=== PATIENT | female | born 1925 | race Caucasian/White ===

== ENCOUNTER 2016-07-08 20:58 | Emergency (ER) | payer MEDICARE, BC ==
[2016-07-08 21:21] VITALS: TEMP 99
[2016-07-08 22:33] VITALS: BP 141/63; PULSE 88; RESP 16
--- NOTE | 2016-07-08 22:34 | ED ---
General Adult HPI - General Chief complaint: Abdominal Pain Stated complaint: Constipation Time Seen by Provider: 07/08/16 22:22 Source: patient, family, RN notes reviewed Mode of arrival: ambulatory Limitations: no limitations - History of Present Illness Initial comments: Patient is a pleasant 89-year-old female presenting to the emergency department with complaints of constipation. Patient had difficulty using the bathroom today. In route to the emergency department patient did have a bowel movement just prior to arrival. Patient still decided to be seen secondary to living far away. Patient is symptom-free at this time and has no complaints. No abdominal pain. No fevers. Patient does not have a bowel movement every single day and sometimes does get constipated. - Related Data Home Medications Medication Instructions Recorded Confirmed Aspirin EC [Ecotrin Low Dose] 162 mg PO HS 04/19/15 04/19/15 Cetirizine HCl [Zyrtec] 10 mg PO DAILY PRN 04/19/15 04/19/15 Eye Lubricant Combination No.1 1 applic BOTH EYES QID PRN 04/19/15 04/19/15 [Freshkote] Levothyroxine Sodium [Synthroid] 100 mcg PO DAILY 04/19/15 04/19/15 Meloxicam [Mobic] 15 mg PO DAILY 04/19/15 04/19/15 Previous Rx's Medication Instructions Recorded ALPRAZolam [Xanax] 0.25 mg PO BID #0 04/21/15 Carbamide Peroxide [Debrox Otic] 5 drops BOTH EARS BID #1 ml 04/21/15 Levofloxacin [Levaquin] 250 mg PO DAILY@1800 #6 tab 04/21/15 Meclizine [Antivert] 25 mg PO BID #60 tab 04/21/15 Allergies Allergy/AdvReac Type Severity Reaction Status Date / Time Penicillins Allergy Unknown Verified 07/08/16 21:20 Childhood Review of Systems ROS Statement: Those systems with pertinent positive or pertinent negative responses have been documented in the HPI. ROS Other: All systems not noted in ROS Statement are negative. Constitutional: Denies: fever, chills Eyes: Denies: eye pain ENT: Denies: ear pain Respiratory: Denies: cough Cardiovascular: Denies: chest pain Endocrine: Denies: fatigue Gastrointestinal: Reports: constipation. Denies: abdominal pain, nausea, vomiting, diarrhea, melena Genitourinary: Denies: dysuria Musculoskeletal: Denies: back pain Skin: Denies: rash Neurological: Denies: weakness Past Medical History Past Medical History: Asthma, Coronary Artery Disease (CAD), GERD/Reflux, Osteoarthritis (OA), Thyroid Disorder Additional Past Medical History / Comment(s): 04/19/15 ADMITTED TO [facility] FOR C/O CHEST PAIN,VIVIEN,DIZZINESS. CLINICAL IMPRESSION: ATYPICAL CHEST PAIN,FEVER, PNEUMONITIS. OTHER PAAST MEDICAL HX INCLUDES: occluded carotids, low cholesterol, low blood pressure, low sodium, diverticulitis, TINNITUS,ROSECEA, ANEMIA,GRAVES DISEASE(PER OLD HX) RT CAROTID ARTERY BLOCKAGE. History of Any Multi-Drug Resistant Organisms: None Reported Past Surgical History: Bowel Resection, Cholecystectomy, Hysterectomy, Tonsillectomy Additional Past Surgical History / Comment(s): tooth pulled 1 week ago, thyroidectomy. Past Anesthesia/Blood Transfusion Reactions: No Reported Reaction Past Psychological History: Anxiety, Depression Smoking Status: Former smoker Past Alcohol Use History: None Reported Additional Past Alcohol Use History / Comment(s): QUIT SMOKING 1960 Past Drug Use History: None Reported - Past Family History Mother Family Medical History: Diabetes Mellitus Father Additional Family Medical History / Comment(s): WAS AN ALCOHOLIC AGE 47 General Exam Limitations: no limitations General appearance: alert, in no apparent distress Head exam: Present: atraumatic Eye exam: Present: normal appearance, PERRL ENT exam: Present: normal oropharynx Neck exam: Present: normal inspection Respiratory exam: Present: normal lung sounds bilaterally Cardiovascular Exam: Present: regular rate, normal rhythm Expanded Peripheral pulses: 2+: Dorsalis Pedis (R), Dorsalis Pedis (L) GI/Abdominal exam: Present: soft, normal bowel sounds. Absent: distended, tenderness, guarding, rebound, rigid, pulsatile mass Extremities exam: Present: normal inspection Neurological exam: Present: alert Psychiatric exam: Present: normal affect, normal mood Skin exam: Absent: rash Course Vital Signs 07/08/16 21:15 Temperature 99.0 F Pulse Rate 105 H Respiratory 20 Rate Blood Pressure 156/102 O2 Sat by Pulse 96 Oximetry Medical Decision Making - Medical Decision Making Patient and family are comfortable with resolution of symptoms and not needing further evaluation. They're comfortable with discharge. There happy with improvement of blood pressure. Disposition Clinical Impression: Constipation Disposition: HOME SELF-CARE Condition: Stable Instructions: Constipation (ED), High Fiber Diet (ED) Additional Instructions: Please follow-up with your primary care physician this week. Return for abdominal pain, fevers, worsening or change in symptoms or other concerns. Referrals: Arias Almendarez MD [Primary Care Provider] - 1-2 days
== END 2016-07-08 22:57 | disposition home or self-care (01) ==
LOC: EC 20:58
DX: K59.00 Constipation, unspecified (principal); I25.10 Atherosclerotic heart disease of native coronary artery without angina pectoris; M19.90 Unspecified osteoarthritis, unspecified site; E07.9 Disorder of thyroid, unspecified; Z87.891 Personal history of nicotine dependence; Z79.82 Long term (current) use of aspirin; Z79.899 Other long term (current) drug therapy; Z79.1 Long term (current) use of non-steroidal anti-inflammatories (NSAID); Z88.0 Allergy status to penicillin; Z90.49 Acquired absence of other specified parts of digestive tract; Z90.710 Acquired absence of both cervix and uterus
CPT/HCPCS: 99283

== ENCOUNTER → 2016-08-01 | Outpatient (CLI) | payer MEDICARE, BC ==
--- NOTE | 2016-08-01 12:41 | FL ---
EXAMINATION: Cervical and Thoracic Esophagram DATE OF EXAM: 08/01/2016 10:43 AM CLINICAL INDICATION: 89-year-old female with dysphagia for several months, patient reports sensation of food sitting in the upper and lower chest and even water not helping to clear this sensation. COMPARISON: None Total Fluoroscopy Time: 3.2 minutes. FINDINGS: There is a single episode of deep laryngeal penetration without mitchell aspiration. The patient's cough reflex is intact. There is mild hypertrophy of the cricopharyngeus without obstruction. The thoracic portion has a normal course and caliber. However, there is moderate to severe tertiary p eristalsis within the mid to distal thoracic esophagus. This results in prolonged pooling of contrast in the esophagus with absent secondary stripping waves. No fixed narrowing or discrete mucosal lesio n is seen though exam is limited as the patient could not tolerate the effervescent crystals for adeq uate air contrast. No discrete filling defect is seen. No hiatal hernia is present. No gastroesophageal reflux could be elicited. IMPRESSION: 1. 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 2. Assessment of the mucosa is limited due to single contrast technique as the patient could not tole rate the effervescent crystals. No obvious filling defect is seen. 3. An incidental single episode of deep laryngeal penetration without mitchell aspiration. The patient's cough reflex is intact.
== END | disposition home or self-care (01) ==
LOC: RADFLWHC 09:31
PROVIDERS: ATTEND Family Medicine
DX: R13.19 Other dysphagia (principal)
CPT/HCPCS: 74220

== ENCOUNTER 2017-02-24 23:41 | Observation (INO) | payer MEDICARE, BC ==
--- NOTE | 2017-02-24 23:57 | ED ---
Chest Pain HPI - General Chief Complaint: Chest Pain Stated Complaint: Chest Pressure/Dizzy Time Seen by Provider: 02/24/17 23:56 Source: patient Mode of arrival: wheelchair Limitations: no limitations - History of Present Illness MD Complaint: chest pain Onset/Timin -: days(s) Onset: during rest Pain Location: substernal Pain Radiation: none Severity: moderate Quality: heaviness Consistency: constant Improves With: nothing Worsens With: nothing Anginal Symptoms: nausea Treatments Prior to Arrival: other (Patient tried taking meclizine without improvement) - Related Data Home Medications Medication Instructions Recorded Confirmed Aspirin EC [Ecotrin Low Dose] 81 mg PO HS 04/19/15 07/08/16 Cetirizine HCl [Zyrtec] 10 mg PO DAILY PRN 04/19/15 07/08/16 Eye Lubricant Combination No.1 1 applic BOTH EYES QID PRN 04/19/15 07/08/16 [Freshkote] Levothyroxine Sodium [Synthroid] 100 mcg PO DAILY 04/19/15 07/08/16 Meloxicam [Mobic] 15 mg PO DAILY 04/19/15 07/08/16 ALPRAZolam [Xanax] 0.25 mg PO BID PRN 07/08/16 07/08/16 Previous Rx's Medication Instructions Recorded Meclizine [Antivert] 25 mg PO BID #60 tab 04/21/15 Allergies Allergy/AdvReac Type Severity Reaction Status Date / Time Penicillins Allergy Unknown Verified 02/24/17 23:46 Childhood Review of Systems ROS Statement: Those systems with pertinent positive or pertinent negative responses have been documented in the HPI. ROS Other: All systems not noted in ROS Statement are negative. Constitutional: Denies: fever, chills Respiratory: Denies: cough, dyspnea Cardiovascular: Reports: chest pain. Denies: palpitations, orthopnea, edema, syncope Gastrointestinal: Reports: nausea. Denies: abdominal pain, vomiting, melena, hematochezia Genitourinary: Denies: dysuria, hematuria Musculoskeletal: Denies: back pain Skin: Denies: rash Neurological: Denies: headache, weakness, numbness EKG Findings - EKG Results: EKG: interpreted by ERMD, sinus rhythm, normal QRS, normal ST/T - Blocks, [place], Hypertrophy, ST Abn: QRS axis and voltage: left axis deviation (-30 to -90) Past Medical History Past Medical History: Asthma, Coronary Artery Disease (CAD), GERD/Reflux, Osteoarthritis (OA), Thyroid Disorder Additional Past Medical History / Comment(s): 04/19/15 ADMITTED TO [facility] FOR C/O CHEST PAIN,VIIVEN,DIZZINESS. CLINICAL IMPRESSION: ATYPICAL CHEST PAIN,FEVER, PNEUMONITIS. OTHER PAAST MEDICAL HX INCLUDES: occluded carotids, low cholesterol, low blood pressure, low sodium, diverticulitis, TINNITUS,ROSECEA, ANEMIA,GRAVES DISEASE(PER OLD HX) RT CAROTID ARTERY BLOCKAGE. right wrisxt fx. History of Any Multi-Drug Resistant Organisms: None Reported Past Surgical History: Bowel Resection, Cholecystectomy, Hysterectomy, Tonsillectomy Additional Past Surgical History / Comment(s): tooth pulled 1 week ago, thyroidectomy. right hip replacement. Past Anesthesia/Blood Transfusion Reactions: No Reported Reaction Past Psychological History: Anxiety, Depression Smoking Status: Former smoker Past Alcohol Use History: None Reported Past Drug Use History: None Reported - Past Family History Mother Family Medical History: Diabetes Mellitus Father Additional Family Medical History / Comment(s): WAS AN ALCOHOLIC AGE 47 General Exam Limitations: no limitations General appearance: alert, in no apparent distress, cachectic Head exam: Present: atraumatic, normocephalic Eye exam: Present: normal appearance. Absent: scleral icterus, conjunctival injection ENT exam: Present: normal oropharynx Respiratory exam: Present: normal lung sounds bilaterally, rales (Bibasilar rales that clear with deep breath). Absent: respiratory distress, wheezes, rhonchi, stridor, chest wall tenderness Cardiovascular Exam: Present: regular rate, normal rhythm, normal heart sounds. Absent: systolic murmur, diastolic murmur, rubs, gallop GI/Abdominal exam: Present: soft. Absent: distended, tenderness, guarding, rebound, rigid Extremities exam: Present: normal inspection, normal capillary refill. Absent: pedal edema, calf tenderness Back exam: Absent: CVA tenderness (R), CVA tenderness (L) Neurological exam: Present: alert Skin exam: Present: warm, dry, intact, normal color. Absent: rash Course Vital Signs 02/24/17 02/25/17 02/25/17 23:42 00:59 01:41 Temperature 98 F Pulse Rate 89 83 80 Respiratory 16 16 16 Rate Blood Pressure 144/63 157/70 O2 Sat by Pulse 99 97 Oximetry 02/25/17 02:57 Temperature Pulse Rate 75 Respiratory 16 Rate Blood Pressure 134/65 O2 Sat by Pulse 97 Oximetry Disposition Clinical Impression: Chest pain Disposition: ADMITTED IP TO THIS HOSP Condition: Fair Referrals: Daksha Hutchinson DO [Primary Care Provider] - 1-2 days
[2017-02-25 00:19] LABS: Anisocytosis Slight; Basophils % (A) 0 %; CH 27.9; CHCM 31.1; Eosinophils # (A) 0.1 k/uL (0-0.7); Eosinophils % (A) 2 %; HCT 37.8 % (34.0-46.0); HDW 2.34; HGB 11.9 gm/dL (11.4-16.0); Hypochromasia Slight; Luc # (Auto) 0.08; Luc % (Auto) 1; Lymphocytes # (A) 1.2 k/uL (1.0-4.8); Lymphocytes % (A) 20 %; MCH 28.4 pg (25.0-35.0); MCHC 31.4 g/dL (31.0-37.0); MCV 90.4 fL (80.0-100.0); Mean Platelet Volume 7.8; Monocytes # (A) 0.4 k/uL (0-1.0); Monocytes % (A) 7 %; Neutrophils % (A) 70 %; RBC 4.19 m/uL (3.80-5.40); WBC 5.8 k/uL (3.8-10.6); WBC (Perox) 5.99
[2017-02-25 00:34] LABS: Partial Thromboplastin Time 23.3 sec (22.0-30.0)
[2017-02-25 00:36] LABS: Prothrombin Time 10.6 sec (9.0-12.0)
[2017-02-25 00:39] LABS: ALT 23 U/L (9-52); AST 27 U/L (14-36); Alkaline Phosphatase 33 U/L (38-126); Amylase 61 U/L (30-110); Anion Gap 10 mmol/L; Blood Urea Nitrogen 21 mg/dL (7-17); Calcium 9.6 mg/dL (8.4-10.2); Carbon Dioxide 25 mmol/L (22-30); Chloride 104 mmol/L (98-107); Glucose 121 mg/dL (74-99); Non-African American GFR(MDRD) >60 (>60 ml/min/1.73 sqM); Sodium 139 mmol/L (137-145); Total Bilirubin 0.4 mg/dL (0.2-1.3)
--- NOTE | 2017-02-25 00:47 | XR ---
EXAMINATION TYPE: XR chest 1V portable DATE OF EXAM: 02/25/2017 COMPARISON: 04/19/2015 HISTORY: Chest pain TECHNIQUE: Single frontal view of the chest is obtained. FINDINGS: There is no heart failure nor confluent pneumonic infiltrate. There is no pleural effusion . There are chest leads. Thoracic aorta is atheromatous. There is pulmonary hyperinflation and some f lattening of the diaphragm. IMPRESSION: COPD. No active cardiopulmonary disease. No change.
[2017-02-25] MEDS ORDERED: RX INFO: IV CONTRAST WAS GIVEN 1 EACH MISC MISCELLANE PRN (01:14)
--- NOTE | 2017-02-25 01:53 | CT ---
EXAMINATION TYPE: CT chest angio for PE DATE OF EXAM: 02/25/2017 COMPARISON: NONE HISTORY: r/o PE CT DLP: 108.1 mGycm Automated exposure control for dose reduction was used. CONTRAST: CT Chest for pulmonary embolism performed with with IV Contrast, patient injected with 70 mL of Omnip aque 350. FINDINGS: There are 3-D post processed images. There is enlargement of right thyroid lobe compared to the left consistent with a goiter. There is normal branching pattern of the great vessels on the aortic arch. There is no evidence of ao rtic aneurysm or dissection. There is mild atherosclerotic vascular calcification. I see no filling defects in the pulmonary arteries. The lungs are clear of consolidation. There is no evidence of a pulmonary mass. There is no pleural effusion. IMPRESSION: There is mild atherosclerotic vascular calcification. No evidence of pulmonary embolism.
[2017-02-25] MEDS ORDERED: NITROGLYCERIN SL TABS 0.4 MG TAB SUBLINGUAL PRN (03:05)
[2017-02-25] MEDS ORDERED: ARTIFICIAL TEARS-HYPROMELLOSE DROPS 15 ML BTL BOTH EYES PRN (03:08)
[2017-02-25] MEDS ORDERED: ALPRAZolam 0.25 MG TAB PO PRN (03:08)
[2017-02-25] MEDS ORDERED: LORATADINE 10 MG TAB PO PRN (03:08)
[2017-02-25] MEDS: HEPARIN SODIUM,PORCINE 5,000 UNIT/ML 1 ML VIAL SQ SCH ×2 (03:23→16:24)
[2017-02-25 04:23] VITALS: BMI 16.9
[2017-02-25] MEDS: LEVOTHYROXINE 100 MCG TAB PO SCH ×2 (04:30→13:58)
[2017-02-25 07:09] LABS: Creatine Kinase <20 U/L (30-135)
[2017-02-25 07:22] LABS: Creatine Kinase MB <0.2 ng/mL (0.0-2.4); Troponin I <0.012 ng/mL (0.000-0.034)
[2017-02-25 07:56] VITALS: RESP 18
[2017-02-25] MEDS ORDERED: LEVOTHYROXINE 100 MCG TAB PO SCH (09:00)
[2017-02-25] MEDS ORDERED: MECLIZINE 25 MG TAB PO SCH (09:00)
[2017-02-25] MEDS ORDERED: DOBUTamine DRIP for NUC MED 500 MG in DEXTROSE/WATER 1 250ML.BAG IV ONE (10:35)
[2017-02-25] MEDS ORDERED: PANTOPRAZOLE 40 MG/10 ML VIAL IVP SCH (10:45)
[2017-02-25 10:50] LABS: Cholesterol 164 mg/dL (<200); HDL Cholesterol 42 mg/dL (40-60)
--- NOTE | 2017-02-25 12:04 | ECHOF ---
Referral Reason: MEASUREMENTS -------- HEIGHT: 160.0 cm WEIGHT: 43.1 kg BP: 120/80 IVSd: 0.6 cm (0.6 - 1.1) LVIDd: 3.7 cm (3.9 - 5.3) LVPWd: 0.9 cm (0.6 - 1.1) IVSs: 1.4 cm LVIDs: 1.9 cm LVPWs: 1.3 cm LAESV Index (A-L): 24.10 ml/m Ao Diam: 2.9 cm (2.0 - 3.7) AV Cusp: 1.9 cm (1.5 - 2.6) LA Diam: 2.4 cm (2.7 - 3.8) MV EXCURSION: 15.184 mm (> 18.000) MV EF SLOPE: 66 mm/s (70 - 150) EPSS: 0.5 cm MV E Kirk: 0.92 m/s MV DecT: 221 ms MV A Kirk: 1.04 m/s MV E/A Ratio: 0.88 RAP: 5.00 mmHg RVSP: 24.33 mmHg FINDINGS -------- Sinus rhythm. This was a technically good study. The left ventricular size is normal. Left ventricular wall thickness is normal. Overall left vent ricular systolic function is normal with, an EF between 55 - 60 %. The right ventricle is normal in size and function. Normal LA size by volume 22+/-6 ml/m2. RA appears enlarged. Aortic valve is trileaflet and is mildly thickened. The mitral valve leaflets are mildly thickened. Mild mitral regurgitation is present. Moderate tricuspid regurgitation present. The right ventricular systolic pressure, as measured by D oppler, is 24.33mmHg. Pulmonic valve appears structurally normal. The aortic root size is normal. The inferior vena cava is mildly dilated. Large Pleural Effusion. CONCLUSIONS -------- 1. Sinus rhythm. 2. This was a technically good study. 3. The left ventricular size is normal. 4. Left ventricular wall thickness is normal. 5. Overall left ventricular systolic function is normal with, an EF between 55 - 60 %. 6. The right ventricle is normal in size and function. 7. Normal LA size by volume 22+/-6 ml/m2. 8. RA appears enlarged. 9. Aortic valve is trileaflet and is mildly thickened. 10. The mitral valve leaflets are mildly thickened. 11. Mild mitral regurgitation is present. 12. Moderate tricuspid regurgitation present. 13. The right ventricular systolic pressure, as measured by Doppler, is 24.33mmHg. 14. Pulmonic valve appears structurally normal. 15. The aortic root size is normal. 16. The inferior vena cava is mildly dilated. 17. Large Pleural Effusion. INSPECTOR CRYSTAL: Marimar Forrest RDCS
[2017-02-25 12:12] LABS: Creatine Kinase 35 U/L (30-135)
[2017-02-25 12:13] VITALS: TEMP 97.9
--- NOTE | 2017-02-25 12:22 | P.HPIM ---
History of Present Illness -year-old female came in with complains of chest pain pressure-like sensation restarted yesterday constant nonradiating patient had elevated d-dimer because of which patient had a CAT scan of the chest which did not show any pulmonary embolism patient denied any cough doesn't have any pneumonia on the chest CAT scan has a chest pain completely resolved patient's chest pain is of is severe enough that she was able to notice it. Patient denied any short of breath lightheadedness patient has no major medical problems does get confuses and she says she does have anxiety disorder patient was recorded take antidepressants Xanax will risk and urine patient will undergo stress us if that is negative patient will be discharged patient is also comparing of May the gastric abdominal discomfort associated with food does have gastritis patient takes 20 mg of Prilosec which will be increased to 40 mg daily and follow with primary care physician. Review of Systems REVIEW OF SYSTEMS: CONSTITUTIONAL: No fever, no malaise, no fatigue. HEENT: No recent visual problems or hearing problems. Denied any sore throat. CARDIOVASCULAR: No orthopnea, PND, no palpitations, no syncope. PULMONARY: No shortness of breath, no cough, no hemoptysis. GASTROINTESTINAL: No diarrhea, no nausea, no vomiting, no abdominal pain. Normoactive bowel sounds. NEUROLOGICAL: No headaches, no weakness, no numbness. HEMATOLOGICAL: Denies any bleeding or petechiae. GENITOURINARY: Denies any burning micturition, frequency, or urgency. MUSCULOSKELETAL/RHEUMATOLOGICAL: Denies any joint pain, swelling, or any muscle pain. ENDOCRINE: Denies any polyuria or polydipsia. The rest of the 14-point review of systems is negative. Past Medical History Past Medical History: Asthma, Coronary Artery Disease (CAD), GERD/Reflux, Osteoarthritis (OA), Thyroid Disorder Additional Past Medical History / Comment(s): 04/19/15 ADMITTED TO [facility] FOR C/O CHEST PAIN,VIVIEN,DIZZINESS. CLINICAL IMPRESSION: ATYPICAL CHEST PAIN,FEVER, PNEUMONITIS. OTHER PAAST MEDICAL HX INCLUDES: occluded carotids, low cholesterol, low blood pressure, low sodium, diverticulitis, TINNITUS,ROSECEA, ANEMIA,GRAVES DISEASE(PER OLD HX) RT CAROTID ARTERY BLOCKAGE. right wrisxt fx. History of Any Multi-Drug Resistant Organisms: None Reported Past Surgical History: Bowel Resection, Cholecystectomy, Hysterectomy, Tonsillectomy Additional Past Surgical History / Comment(s): tooth pulled , thyroidectomy. right hip replacement. Past Anesthesia/Blood Transfusion Reactions: No Reported Reaction Smoking Status: Former smoker - Past Family History Mother Family Medical History: Diabetes Mellitus Father Additional Family Medical History / Comment(s): WAS AN ALCOHOLIC AGE 47 Medications and Allergies Home Medications Medication Instructions Recorded Confirmed Type Cetirizine HCl [Zyrtec] 10 mg PO DAILY PRN 04/19/15 02/25/17 History Eye Lubricant Combination No.1 1 applic BOTH EYES QID PRN 04/19/15 02/25/17 History [Freshkote] Levothyroxine Sodium [Synthroid] 100 mcg PO DAILY 04/19/15 02/25/17 History ALPRAZolam [Xanax] 0.25 mg PO BID PRN 07/08/16 02/25/17 History Benzonatate [Benzonatate Perle] 200 mg PO TID PRN 02/25/17 02/25/17 History Fluticasone Propionate 1 spray EA NOSTRIL DAILY 02/25/17 02/25/17 History Meclizine HCl 12.5 mg PO TID PRN 02/25/17 02/25/17 History Omeprazole [PriLOSEC] 40 mg PO AC-BRKFST #14 capsule. 02/25/17 Rx Allergies Allergy/AdvReac Type Severity Reaction Status Date / Time Penicillins Allergy Unknown Verified 02/25/17 04:06 Childhood Physical Exam Vitals: Vital Signs Temp Pulse Pulse Resp BP BP BP 02/25/17 12:00 97.9 F 69 18 107/59 02/25/17 09:18 02/25/17 07:55 97.3 F L 64 18 104/53 02/25/17 04:00 97.5 F L 68 16 111/57 02/25/17 02:57 75 16 134/65 02/25/17 01:41 80 16 02/25/17 00:59 83 16 157/70 02/24/17 23:42 98 F 89 16 144/63 Pulse Ox 02/25/17 12:00 97 02/25/17 09:18 97 02/25/17 07:55 97 02/25/17 04:00 98 02/25/17 02:57 97 02/25/17 01:41 02/25/17 00:59 97 02/24/17 23:42 99 Intake and Output 02/24/17 02/25/17 02/25/17 22:59 06:59 14:59 Other: Voiding Method Toilet # Voids 1 1 Weight 43.5 kg 43.5 kg Patient Weight 02/26/17 06:59 Weight 43.5 kg PHYSICAL EXAMINATION: GENERAL: The patient is alert and oriented x3, not in any acute distress. Thin built female HEENT: Pupils are round and equally reacting to light. EOMI. No scleral icterus. No conjunctival pallor. Normocephalic, atraumatic. No pharyngeal erythema. No thyromegaly. CARDIOVASCULAR: S1 and S2 present. No murmurs, rubs, or gallops. PULMONARY: Chest is clear to auscultation, no wheezing or crackles. ABDOMEN: Soft, nontender, nondistended, normoactive bowel sounds. No palpable organomegaly. MUSCULOSKELETAL: No joint swelling or deformity. EXTREMITIES: No cyanosis, clubbing, or pedal edema. NEUROLOGICAL: Gross neurological examination did not reveal any focal deficits. SKIN: No rashes. Results CBC & Chem 7: 02/25/17 00:00 02/25/17 00:00 Labs: Abnormal Lab Results - Last 24 Hours (Table) 02/25/17 02/25/17 02/25/17 Range/Units 00:00 00:00 00:00 RDW 17.0 H (11.5-15.5) % D-Dimer 1.87 H (<0.60) mg/L FEU BUN 21 H (7-17) mg/dL Glucose 121 H (74-99) mg/dL Alkaline Phosphatase 33 L (38-126) U/L Total Creatine Kinase (30-135) U/L LDL Cholesterol, Calc (0-99) mg/dL 02/25/17 02/25/17 Range/Units 06:24 06:24 RDW (11.5-15.5) % D-Dimer (<0.60) mg/L FEU BUN (7-17) mg/dL Glucose (74-99) mg/dL Alkaline Phosphatase (38-126) U/L Total Creatine Kinase <20 L (30-135) U/L LDL Cholesterol, Calc 106 H (0-99) mg/dL Thrombosis Risk Factor Assmnt - Choose All That Apply Each Risk Factor Represents 3 Points: Age 75 years or older Thrombosis Risk Factor Assessment Total Risk Factor Score: 3 Thrombosis Risk Factor Assessment Level: Moderate Risk Assessment and Plan Plan: #1 chest pain: We will rule out a concurrent syndromes patient has 2 concerns of chest pain #1 musculoskeletal #2 probable gastroesophageal reflux disease. #2 anxiety #3 gastro-esophageal reflux disease #4 hypothyroidism #5 benign push vertigo For above-mentioned chronic total problems patient can continue her medications. Patient will be discharged after the stress test
--- NOTE | 2017-02-25 12:22 | P.DS ---
Providers Date of admission: 02/25/17 03:05 Attending physician: Russell Murphy Consults: 02/25/17 03:05 Consult Physician Routine Consulting Provider: Jovi Almazan Consult Reason/Comments: chest pain Do you want consulting provider notified?: Yes Primary care physician: Daksha Hutchinson [facility] Course: Please refer to my HPI Patient Condition at Discharge: Fair Plan - Discharge Summary New Discharge Prescriptions: New Omeprazole [PriLOSEC] 40 mg PO AC-BRKFST #14 capsule. Continue ALPRAZolam [Xanax] 0.25 mg PO BID PRN PRN Reason: Anxiety Discontinued Omeprazole [Omeprazole] 20 mg PO DAILY No Action Eye Lubricant Combination No.1 [Freshkote] 1 applic BOTH EYES QID PRN PRN Reason: DRY EYES Levothyroxine Sodium [Synthroid] 100 mcg PO DAILY Cetirizine HCl [Zyrtec] 10 mg PO DAILY PRN PRN Reason: ALLERGIES Benzonatate [Benzonatate Perle] 200 mg PO TID PRN PRN Reason: Cough Fluticasone Propionate 1 spray EA NOSTRIL DAILY Meclizine HCl 12.5 mg PO TID PRN PRN Reason: Vertigo Discharge Medication List Cetirizine HCl [Zyrtec] 10 mg PO DAILY PRN 04/19/15 [History] Eye Lubricant Combination No.1 [Freshkote] 1 applic BOTH EYES QID PRN 04/19/15 [ History] Levothyroxine Sodium [Synthroid] 100 mcg PO DAILY 04/19/15 [History] ALPRAZolam [Xanax] 0.25 mg PO BID PRN 07/08/16 [History] Benzonatate [Benzonatate Perle] 200 mg PO TID PRN 02/25/17 [History] Fluticasone Propionate 1 spray EA NOSTRIL DAILY 02/25/17 [History] Meclizine HCl 12.5 mg PO TID PRN 02/25/17 [History] Omeprazole [PriLOSEC] 40 mg PO AC-BRKFST #14 capsule. 02/25/17 [Rx] Follow up Appointment(s)/Referral(s): Daksha Hutchinson DO [Primary Care Provider] - 3 Days Discharge Disposition: HOME SELF-CARE
[2017-02-25 12:25] LABS: Creatine Kinase MB <0.2 ng/mL (0.0-2.4); Troponin I <0.012 ng/mL (0.000-0.034)
--- NOTE | 2017-02-25 12:25 | P.CRDCN ---
History of Present Illness Consult date: 02/25/17 History of present illness: This is an 89-year-old female with past medical history significant for hypertension, hypothyroidism, carotid disease, vertigo and anxiety. Although she takes nothing for hypertension. She is somewhat of a poor historian. At the time of my exam she denies chest pain, dizziness, shortness of breath, palpitations, diaphoresis, nausea or vomiting. She states all day yesterday she had a heaviness on her chest described as someone sitting on her chest. It was a consistent discomfort that lasted all day with no specific aggravating or alleviating factors. There are no old records at the office. But recent consultation from 2016 indicates she had a cardiac catheterization in [address] Trujillo that was negative for obstructive coronary artery disease. EKG reveals sinus mechanism with left axis deviation which is consistent with old EKG on file from 2016. Cardiac enzymes negative x2, potassium 4, magnesium 2, LDL 106, D-dimer 1.87 with negative CTA. Blood pressure 107/59 with heart rate 69. Review of Systems CONSTITUTIONAL: Denies fever. Denies chills. EYES: Denies blurred vision. Denies vision changes. Denies eye pain. EARS, NOSE, MOUTH & THROAT: Denies headache. Denies sore throat. Denies ear pain. CARDIOVASCULAR: Denies chest pain. Denies shortness of breath. Denies orthopnea. Denies PND. Denies palpitations. RESPIRATORY: Denies cough. GASTROINTESTINAL: Denies abdominal pain. Denies diarrhea. Denies constipation. Denies nausea. Denies vomitng. MUSCULOSKELETAL: Denies myalgias. INTEGUMENTARY: Denies pruitis. Denies rash. NEUROLOGIC: Denies numbness. Denies tingling. Denies weakness. PSYCHIATRIC: Denies anxiety. Denies depression. ENDOCRINE: Denies fatigue. Denies weight change. Denies polydipsia. Denies polyurina. GENITOURINARY: Denies burning, hematuria or urgency with micturation. HEMATOLOGIC: Denies history of anemia. Denies bleeding. Past Medical History Past Medical History: Asthma, Coronary Artery Disease (CAD), GERD/Reflux, Osteoarthritis (OA), Thyroid Disorder Additional Past Medical History / Comment(s): 04/19/15 ADMITTED TO [facility] FOR C/O CHEST PAIN,VIVIEN,DIZZINESS. CLINICAL IMPRESSION: ATYPICAL CHEST PAIN,FEVER, PNEUMONITIS. OTHER PAAST MEDICAL HX INCLUDES: occluded carotids, low cholesterol, low blood pressure, low sodium, diverticulitis, TINNITUS,ROSECEA, ANEMIA,GRAVES DISEASE(PER OLD HX) RT CAROTID ARTERY BLOCKAGE. right wrisxt fx. History of Any Multi-Drug Resistant Organisms: None Reported Past Surgical History: Bowel Resection, Cholecystectomy, Hysterectomy, Tonsillectomy Additional Past Surgical History / Comment(s): tooth pulled , thyroidectomy. right hip replacement. Past Anesthesia/Blood Transfusion Reactions: No Reported Reaction Smoking Status: Former smoker - Past Family History Mother Family Medical History: Diabetes Mellitus Father Additional Family Medical History / Comment(s): WAS AN ALCOHOLIC AGE 47 Medications and Allergies Home Medications Medication Instructions Recorded Confirmed Type Cetirizine HCl [Zyrtec] 10 mg PO DAILY PRN 04/19/15 02/25/17 History Eye Lubricant Combination No.1 1 applic BOTH EYES QID PRN 04/19/15 02/25/17 History [Freshkote] Levothyroxine Sodium [Synthroid] 100 mcg PO DAILY 04/19/15 02/25/17 History ALPRAZolam [Xanax] 0.25 mg PO BID PRN 07/08/16 02/25/17 History Benzonatate [Benzonatate Perle] 200 mg PO TID PRN 02/25/17 02/25/17 History Fluticasone Propionate 1 spray EA NOSTRIL DAILY 02/25/17 02/25/17 History Meclizine HCl 12.5 mg PO TID PRN 02/25/17 02/25/17 History Omeprazole [PriLOSEC] 40 mg PO AC-BRKFST #14 capsule. 02/25/17 Rx Allergies Allergy/AdvReac Type Severity Reaction Status Date / Time Penicillins Allergy Unknown Verified 02/25/17 04:06 Childhood Physical Exam Vitals: Vital Signs Temp Pulse Pulse Resp BP BP BP 02/25/17 09:18 02/25/17 07:55 97.3 F L 64 18 104/53 02/25/17 04:00 97.5 F L 68 16 111/57 02/25/17 02:57 75 16 134/65 02/25/17 01:41 80 16 02/25/17 00:59 83 16 157/70 02/24/17 23:42 98 F 89 16 144/63 Pulse Ox 02/25/17 09:18 97 02/25/17 07:55 97 02/25/17 04:00 98 02/25/17 02:57 97 02/25/17 01:41 02/25/17 00:59 97 02/24/17 23:42 99 Intake and Output 02/24/17 02/25/17 02/25/17 22:59 06:59 14:59 Other: Voiding Method Toilet # Voids 1 1 Weight 43.5 kg 43.5 kg Patient Weight 02/26/17 06:59 Weight 43.5 kg GENERAL: This is a 89-year-old female in no apparent distress at the time of my examination. HEENT: Head is atraumatic, normocephalic. Pupils are equal, round. Sclerae anicteric. Conjunctivae are clear. Mucous membranes of the mouth are moist. Neck is supple. There is no jugular venous distention. No carotid bruit is heard. LUNGS: Clear to auscultation no wheezes, rales or rhonchi. No chest wall tenderness is noted on palpation or with deep breathing. HEART: Regular rate and rhythm with faint systolic ejection murmur, no rubs or gallops. S1 and S2 heard. ABDOMEN: Soft, nontender. Bowel sounds are heard. No organomegaly noted. EXTREMITIES: 2+ peripheral pulses with no evidence of peripheral edema and no calf tenderness noted. NEUROLOGIC: Patient is awake, alert and oriented x3. Results 02/25/17 00:00 02/25/17 00:00 Cardiac Enzymes 02/25/17 02/25/17 02/25/17 Range/Units 00:00 00:00 06:24 AST 27 (14-36) U/L CK-MB (CK-2) <0.2 (0.0-2.4) ng/mL Troponin I <0.012 <0.012 (0.000-0.034) ng/mL Coagulation 02/25/17 Range/Units 00:00 PT 10.6 (9.0-12.0) sec APTT 23.3 (22.0-30.0) sec Lipids 02/25/17 Range/Units 06:24 Triglycerides 82 (<150) mg/dL Cholesterol 164 (<200) mg/dL HDL Cholesterol 42 (40-60) mg/dL CBC 02/25/17 Range/Units 00:00 WBC 5.8 (3.8-10.6) k/uL RBC 4.19 (3.80-5.40) m/uL Hgb 11.9 (11.4-16.0) gm/dL Hct 37.8 (34.0-46.0) % Plt Count 206 (150-450) k/uL Comprehensive Metabolic Panel 02/25/17 Range/Units 00:00 Sodium 139 (137-145) mmol/L Potassium 4.0 (3.5-5.1) mmol/L Chloride 104 (98-107) mmol/L Carbon Dioxide 25 (22-30) mmol/L BUN 21 H (7-17) mg/dL Creatinine 0.70 (0.52-1.04) mg/dL Glucose 121 H (74-99) mg/dL Calcium 9.6 (8.4-10.2) mg/dL AST 27 (14-36) U/L ALT 23 (9-52) U/L Alkaline Phosphatase 33 L (38-126) U/L Total Protein 7.0 (6.3-8.2) g/dL Albumin 3.9 (3.5-5.0) g/dL Current Medications Generic Name Dose Route Start Last Admin Trade Name Freq PRN Reason Stop Dose Admin Artificial Tears 1 drops 02/25/17 03:08 Artificial Tear Drops BOTH EYES QID PRN DRY EYES Aspirin 81 mg 02/25/17 21:00 Aspirin PO HS DOMINGO Heparin Sodium (Porcine) 5,000 unit 02/25/17 03:15 02/25/17 03:23 Heparin SQ 5,000 unit Q12H DOMINGO Administration Levothyroxine Sodium 100 mcg 02/25/17 06:30 02/25/17 04:30 Synthroid PO 100 mcg DAILY DOMINGO Administration Loratadine 10 mg 02/25/17 03:08 Claritin PO DAILY PRN ALLERGIES Meclizine HCl 25 mg 02/25/17 09:00 Antivert PO BID DOMINGO Miscellaneous Information 1 each 02/25/17 01:14 02/25/17 03:23 Rx Info: Iv Contrast Was Given MISCELLANE 02/27/17 01:14 1 each DAILY PRN Administration Per Protocol Nitroglycerin 0.4 mg 02/25/17 03:05 Nitrostat SUBLINGUAL Q5M PRN Chest Pain Pantoprazole Sodium 40 mg 02/25/17 10:45 Protonix IVP DAILY DOMINGO Intake and Output 02/24/17 02/25/17 02/25/17 22:59 06:59 14:59 Other: Voiding Method Toilet # Voids 1 1 Weight 43.5 kg 43.5 kg Patient Weight 02/26/17 06:59 Weight 43.5 kg 02/25/17 00:00 02/25/17 00:00 Assessment and Plan Assessment: ASSESSMENT 1. Chest pain, atypical. Acute coronary syndrome has been ruled out with negative cardiac enzymes and normal EKG. PLAN Obtain 2D echocardiogram and doppler study to assess cardiac structure and function. Perform dobutamine stress echo to evaluate for EKG changes and rule out ischemia. Check TSH and free T4. Thank you kindly for this consultation. Nurse Practitioner note has been reviewed, I agree with a documented findings and plan of care. Patient was seen and examined.
--- NOTE | 2017-02-25 14:31 | ECHOS ---
STRESS ECHOCARDIOGRAM INDICATIONS: Chest pain BASELINE HEART RATE: 66 BASELINE BLOOD PRESSURE: 105/52 MAXIMUM HEART RATE: 112 MAXIMUM BLOOD PRESSURE: 135/37 85% MPHR: 111 100% MPHR: 131 MAXIMUM STAGE REACHED: 3 TOTAL EXERCISE TIME: 6:30 CLINICAL INFORMATION: Patient was given dobutamine infusion according to the standard protocol. Peak heart rate of 112 was achieved. Maximum blood pressure of 135/37 mmHg was noted. Resting EKG shows normal sinus rhythm with normal [place] interval and QRS duration and normal ST-T waves. No ST-segment depression suggestive of ischemia is noted. The baseline echocardiographic images reveals normal left ventricular chamber size with normal left ventricular systolic function. At the peak dose of dobutamine infusion, normal increase in the wall thickness and contractility is noted. FINAL IMPRESSION: This dobutamine stress echocardiographic study is negative for stress-induced ischemia. EKG portion of the stress test is not suggestive of ischemia. MMYESENIAL / IJN: [id number] /
[2017-02-25 15:27] VITALS: BP 123/57; PULSE 70
[2017-02-25] MEDS ORDERED: ASPIRIN 81 MG PO SCH (21:00)
[2017-02-26] MEDS ORDERED: ASPIRIN 325 MG TAB PO SCH (09:00)
== END 2017-02-25 16:25 | disposition home or self-care (01) ==
LOC: EC 23:41 → 3OBS 02-25 03:05
PROVIDERS: ADMIT Hospitalist; ATTEND Hospitalist
DX: R07.89 Other chest pain (principal); R79.89 Other specified abnormal findings of blood chemistry; K21.9 Gastro-esophageal reflux disease without esophagitis; H81.10 Benign paroxysmal vertigo, unspecified ear; F41.9 Anxiety disorder, unspecified; E03.9 Hypothyroidism, unspecified; I95.9 Hypotension, unspecified; I65.21 Occlusion and stenosis of right carotid artery; J45.909 Unspecified asthma, uncomplicated; I25.10 Atherosclerotic heart disease of native coronary artery without angina pectoris; M19.90 Unspecified osteoarthritis, unspecified site; Z79.1 Long term (current) use of non-steroidal anti-inflammatories (NSAID); Z79.82 Long term (current) use of aspirin; Z79.51 Long term (current) use of inhaled steroids; Z79.899 Other long term (current) drug therapy; Z87.891 Personal history of nicotine dependence; Z88.0 Allergy status to penicillin; Z87.01 Personal history of pneumonia (recurrent); Z87.19 Personal history of other diseases of the digestive system
CPT/HCPCS: 99285; 96372; 36415; 94760; 93005; 93017; 93306; 93350; 85379; 84439; 80061; 80053; 84443; 82150; 82550; 82553; 83690; 83735; 84484; 85025; 85610; 85730; 71010; 71275; G0378; J1250; J1644; Q9967

== ENCOUNTER 2017-05-15 20:34 | Observation (INO) | payer MEDICARE, BC ==
--- NOTE | 2017-05-15 21:10 | ED ---
Dizziness HPI - General Chief Complaint: Dizziness Stated Complaint: dizziness Time Seen by Provider: 05/15/17 21:02 Source: patient, family Mode of arrival: wheelchair Limitations: no limitations - History of Present Illness Initial Comments: This patient is an 89-year-old woman brought to be evaluated for a feeling of dizziness or lightheadedness. She has a difficult time to characterize the symptoms exactly. Patient's daughter is here with her and they do note that she has had this problem intermittently for quite some time and she was prescribed meclizine for this previously. More recently however the patient had a diagnosis of DVT with bilateral pulmonary embolism, she did start eliquis a couple of weeks ago and they were concerned that this set of symptoms may be related to that. They therefore did not try the meclizine and came here to be evaluated. Symptoms have been present since the morning. They do seem to be worse if she is upright. She has not noted any other relieving or worsening factors. MD Complaint: dizziness, lightheadedness -: days(s) Timing: gradual onset Description: lightheadedness History of Same: Yes History of Trauma: No Severity: moderate Worsens With: movement Associated Symptoms: denies other symptoms - Related Data Home Medications Medication Instructions Recorded Confirmed Cetirizine HCl [Zyrtec] 10 mg PO DAILY PRN 04/19/15 05/15/17 Levothyroxine Sodium [Synthroid] 100 mcg PO DAILY 04/19/15 05/15/17 ALPRAZolam [Xanax] 0.25 mg PO BID PRN 07/08/16 05/15/17 Fluticasone Propionate 1 spray EA NOSTRIL DAILY PRN 02/25/17 05/15/17 Meclizine HCl 12.5 mg PO TID PRN 02/25/17 05/15/17 Omeprazole 40 mg PO DAILY PRN 05/15/17 05/15/17 Previous Rx's Medication Instructions Recorded Apixaban [Eliquis] 10 mg PO BID tab 05/02/17 Allergies Allergy/AdvReac Type Severity Reaction Status Date / Time Penicillins Allergy Unknown Verified 05/15/17 23:52 Childhood Review of Systems ROS Statement: Those systems with pertinent positive or pertinent negative responses have been documented in the HPI. ROS Other: All systems not noted in ROS Statement are negative. Constitutional: Reports: weakness. Denies: fever, chills Eyes: Denies: vision change Respiratory: Denies: cough, dyspnea, hemoptysis Cardiovascular: Denies: chest pain, palpitations, orthopnea, edema, syncope Gastrointestinal: Denies: abdominal pain, nausea, vomiting Genitourinary: Denies: dysuria, hematuria Musculoskeletal: Denies: back pain Skin: Denies: rash Neurological: Reports: as per HPI, weakness, vertigo. Denies: headache, numbness Past Medical History Past Medical History: Asthma, Coronary Artery Disease (CAD), Chest Pain / Angina , GERD/Reflux, Osteoarthritis (OA), Thyroid Disorder Additional Past Medical History / Comment(s): Coronary artery disease, bronchial asthma, hypothyroidism, diverticulosis/diverticulitis, rosacea, Graves ' disease history of, carotid artery disease, chronic constipation, history of right-sided wrist fracture History of Any Multi-Drug Resistant Organisms: None Reported Past Surgical History: Bowel Resection, Cholecystectomy, Hysterectomy, Tonsillectomy Additional Past Surgical History / Comment(s): tooth pulled , thyroidectomy. right hip replacement. Past Anesthesia/Blood Transfusion Reactions: No Reported Reaction Past Psychological History: Anxiety, Depression Smoking Status: Former smoker Past Alcohol Use History: None Reported Past Drug Use History: None Reported - Past Family History Mother Family Medical History: Diabetes Mellitus Father Additional Family Medical History / Comment(s): WAS AN ALCOHOLIC AGE 47 Daughter(s) Family Medical History: Diabetes Mellitus General Exam Limitations: no limitations General appearance: alert, in no apparent distress Head exam: Present: atraumatic, normocephalic Eye exam: Present: normal appearance. Absent: scleral icterus, conjunctival injection Respiratory exam: Present: normal lung sounds bilaterally. Absent: respiratory distress, wheezes, rales, rhonchi, stridor Cardiovascular Exam: Present: regular rate, normal rhythm, normal heart sounds. Absent: systolic murmur, diastolic murmur, rubs, gallop GI/Abdominal exam: Present: soft. Absent: distended, tenderness, guarding, rebound, mass Extremities exam: Present: normal inspection, normal capillary refill, pedal edema (There is trace edema at the ankles bilaterally). Absent: calf tenderness Back exam: Absent: CVA tenderness (R), CVA tenderness (L) Neurological exam: Present: alert, oriented X3, CN II-XII intact. Absent: motor sensory deficit Skin exam: Present: warm, dry, intact, normal color. Absent: rash Course Vital Signs 05/15/17 05/15/17 05/15/17 20:44 21:13 22:21 Temperature 98.1 F Pulse Rate 76 74 71 Respiratory 20 18 18 Rate Blood Pressure 154/66 147/69 160/70 O2 Sat by Pulse 99 100 94 L Oximetry 05/15/17 23:21 Temperature Pulse Rate 77 Respiratory 18 Rate Blood Pressure 129/67 O2 Sat by Pulse 98 Oximetry Medical Decision Making - Medical Decision Making Patient is an 89-year-old woman with recent bilateral PEs in with vertigo and lightheadedness. Her case was discussed with Dr. Murphy while he was rounding in the emergency department and he did see her and patient be admitted for further evaluation. - Lab Data Result diagrams: 05/15/17 21:15 05/15/17 21:15 Lab Results 05/15/17 05/15/17 05/15/17 Range/Units 21:15 21:15 21:15 WBC 4.0 (3.8-10.6) k/uL RBC 3.74 L (3.80-5.40) m/uL Hgb 11.4 (11.4-16.0) gm/dL Hct 35.2 (34.0-46.0) % MCV 94.0 (80.0-100.0) fL MCH 30.4 (25.0-35.0) pg MCHC 32.3 (31.0-37.0) g/dL RDW 14.0 (11.5-15.5) % Plt Count 193 (150-450) k/uL Neutrophils % 50 % Lymphocytes % 32 % Monocytes % 8 % Eosinophils % 5 % Basophils % 1 % Neutrophils # 2.0 (1.3-7.7) k/uL Lymphocytes # 1.3 (1.0-4.8) k/uL Monocytes # 0.3 (0-1.0) k/uL Eosinophils # 0.2 (0-0.7) k/uL Basophils # 0.0 (0-0.2) k/uL Sodium 141 (137-145) mmol/L Potassium 4.1 (3.5-5.1) mmol/L Chloride 104 (98-107) mmol/L Carbon Dioxide 29 (22-30) mmol/L Anion Gap 8 mmol/L BUN 20 H (7-17) mg/dL Creatinine 0.80 (0.52-1.04) mg/dL Est GFR (MDRD) Af Amer >60 (>60 ml/min/1.73 sqM) Est GFR (MDRD) Non-Af >60 (>60 ml/min/1.73 sqM) Glucose 103 H (74-99) mg/dL Plasma Lactic Acid Ihsan (0.7-2.0) mmol/L Calcium 9.6 (8.4-10.2) mg/dL Total Bilirubin 0.4 (0.2-1.3) mg/dL AST 25 (14-36) U/L ALT 24 (9-52) U/L Alkaline Phosphatase 36 L (38-126) U/L Troponin I <0.012 (0.000-0.034) ng/mL Total Protein 6.9 (6.3-8.2) g/dL Albumin 3.8 (3.5-5.0) g/dL Urine Color Urine Appearance (Clear) Urine pH (5.0-8.0) Ur Specific [place] (1.001-1.035) Urine Protein (Negative) Urine Glucose (UA) (Negative) Urine Ketones (Negative) Urine Blood (Negative) Urine Nitrite (Negative) Urine Bilirubin (Negative) Urine Urobilinogen (<2.0) mg/dL Ur Leukocyte Esterase (Negative) Urine RBC (0-5) /hpf Urine WBC (0-5) /hpf Ur Squamous Epith Cells (0-4) /hpf Amorphous Sediment (None) /hpf Urine Mucus (None) /hpf 05/15/17 05/15/17 Range/Units 22:05 22:16 WBC (3.8-10.6) k/uL RBC (3.80-5.40) m/uL Hgb (11.4-16.0) gm/dL Hct (34.0-46.0) % MCV (80.0-100.0) fL MCH (25.0-35.0) pg MCHC (31.0-37.0) g/dL RDW (11.5-15.5) % Plt Count (150-450) k/uL Neutrophils % % Lymphocytes % % Monocytes % % Eosinophils % % Basophils % % Neutrophils # (1.3-7.7) k/uL Lymphocytes # (1.0-4.8) k/uL Monocytes # (0-1.0) k/uL Eosinophils # (0-0.7) k/uL Basophils # (0-0.2) k/uL Sodium (137-145) mmol/L Potassium (3.5-5.1) mmol/L Chloride (98-107) mmol/L Carbon Dioxide (22-30) mmol/L Anion Gap mmol/L BUN (7-17) mg/dL Creatinine (0.52-1.04) mg/dL Est GFR (MDRD) Af Amer (>60 ml/min/1.73 sqM) Est GFR (MDRD) Non-Af (>60 ml/min/1.73 sqM) Glucose (74-99) mg/dL Plasma Lactic Acid Ihsan 1.0 (0.7-2.0) mmol/L Calcium (8.4-10.2) mg/dL Total Bilirubin (0.2-1.3) mg/dL AST (14-36) U/L ALT (9-52) U/L Alkaline Phosphatase (38-126) U/L Troponin I (0.000-0.034) ng/mL Total Protein (6.3-8.2) g/dL Albumin (3.5-5.0) g/dL Urine Color Light Yellow Urine Appearance Clear (Clear) Urine pH 6.0 (5.0-8.0) Ur Specific [place] 1.008 (1.001-1.035) Urine Protein Negative (Negative) Urine Glucose (UA) Negative (Negative) Urine Ketones Negative (Negative) Urine Blood Small H (Negative) Urine Nitrite Negative (Negative) Urine Bilirubin Negative (Negative) Urine Urobilinogen <2.0 (<2.0) mg/dL Ur Leukocyte Esterase Trace H (Negative) Urine RBC 8 H (0-5) /hpf Urine WBC 6 H (0-5) /hpf Ur Squamous Epith Cells <1 (0-4) /hpf Amorphous Sediment Rare H (None) /hpf Urine Mucus Rare H (None) /hpf - EKG Data -: EKG Interpreted by De EKG shows normal: sinus rhythm, axis (Is deviation), intervals (AZ interval is 220 ms, consistent with a first-degree AV block, QRS and QT are normal), ST-T waves (Normal) Rate: normal (Rate is proximal 75 bpm) Disposition Clinical Impression: Weakness Disposition: ADMITTED IP TO THIS HOSP Condition: Fair
[2017-05-15 22:07] LABS: Basophils % (A) 1 %; Eosinophils # (A) 0.2 k/uL (0-0.7); Eosinophils % (A) 5 %; HCT 35.2 % (34.0-46.0); HGB 11.4 gm/dL (11.4-16.0); Lymphocytes # (A) 1.3 k/uL (1.0-4.8); Lymphocytes % (A) 32 %; MCH 30.4 pg (25.0-35.0); MCHC 32.3 g/dL (31.0-37.0); Mean Platelet Volume 7.4; Monocytes # (A) 0.3 k/uL (0-1.0); Monocytes % (A) 8 %; Neutrophils % (A) 50 %; Platelet Count 193 k/uL (150-450); RBC 3.74 m/uL (3.80-5.40)
--- NOTE | 2017-05-15 22:18 | XR ---
EXAMINATION TYPE: XR chest 1V portable DATE OF EXAM: 05/15/2017 COMPARISON: 04/30/2017 HISTORY: Weakness TECHNIQUE: Single frontal view of the chest is obtained. FINDINGS: There is slight blunting of right costophrenic angle. There is no gross heart failure. Hea rt size is normal. Thoracic aorta is atheromatous. There are chest leads. Lungs are clear of consolid ation. IMPRESSION: There is new very small right pleural effusion compared to old exam. No heart failure.
[2017-05-15 22:20] LABS: ALT 24 U/L (9-52); AST 25 U/L (14-36); Albumin 3.8 g/dL (3.5-5.0); Alkaline Phosphatase 36 U/L (38-126); Anion Gap 8 mmol/L; Blood Urea Nitrogen 20 mg/dL (7-17); Calcium 9.6 mg/dL (8.4-10.2); Carbon Dioxide 29 mmol/L (22-30); Chloride 104 mmol/L (98-107); Glucose 103 mg/dL (74-99); Potassium 4.1 mmol/L (3.5-5.1); Sodium 141 mmol/L (137-145); Total Bilirubin 0.4 mg/dL (0.2-1.3); Total Protein 6.9 g/dL (6.3-8.2)
[2017-05-15 22:33] LABS: Amorphous Sediment,Urine Rare /hpf; Appearance,Urine Clear (Clear); Bilirubin,Urine Negative (Negative); Blood,Urine Small (Negative); Color,Urine Light Yellow; Glucose,Urine (UA) Negative (Negative); Ketones,Urine Negative (Negative); Leukocyte Esterase,Urine Trace (Negative); Mucus,Urine Rare /hpf; Nitrite,Urine Negative (Negative); Protein,Urine Negative (Negative); RBC,Urine 8 /hpf (0-5); Specific Gravity,Urine 1.008 (1.001-1.035); Squamous Epithelial Cell,Urine <1 /hpf (0-4); Urobilinogen,Urine <2.0 mg/dL (<2.0); WBC,Urine 6 /hpf (0-5)
[2017-05-15] MEDS ORDERED: NALOXONE 0.4 MG/ML 1 ML VIAL IV PRN (23:06)
[2017-05-15] MEDS ORDERED: ACETAMINOPHEN TAB 325 MG TAB PO PRN (23:06)
[2017-05-15] MEDS ORDERED: FLUTICASONE 50MCG/SPRAY NASAL 16GM EA NOSTRIL PRN (23:08)
[2017-05-15] MEDS ORDERED: PANTOPRAZOLE 40 MG TABLET PO PRN (23:08)
[2017-05-15] MEDS ORDERED: MECLIZINE 12.5 MG TAB PO PRN (23:08)
[2017-05-15] MEDS ORDERED: ALPRAZolam 0.25 MG TAB PO PRN (23:08)
[2017-05-15] MEDS ORDERED: SODIUM CHLORIDE 0.9% 1,000 ML IV SCH (23:15)
--- NOTE | 2017-05-16 05:27 | HP ---
HISTORY AND PHYSICAL DATE OF SERVICE: 05/15/17 CHIEF COMPLAINTS: Dizziness. HISTORY OF PRESENT ILLNESS: This 89-year-old woman with a past medical history of multiple medical problems being followed by Dr. Hutchinson in the outpatient setting was recently admitted with dizziness which was felt to be secondary to acute pulmonary embolism. Patient started on Eliquis and the patient discharged but apparently at home the patient had dizziness and the family was concerned and because of intermittent dizziness, the patient taken to [facility] and the patient admitted to the hospital for the further evaluation and treatment. The patient has diffuse aches and pains also. The family is concerned with blood clots as well. There is no history of any shortness of breath, hematochezia or melena at this time. No chest pain. No palpitations. No fever. PAST MEDICAL HISTORY: History of asthma, CAD, chest pain, DVT, GERD, DJD, pulmonary embolism, bowel resection. MEDICATIONS: Home medications include: 1. Omeprazole 40 mg daily p.r.n. 2. Meclizine 12.5 mg t.i.d. p.r.n. 3. Synthroid 100 mcg p.o. daily. 4. Fluticasone spray daily p.r.n. 5. Zyrtec 10 mg p.o. daily. 6. Eliquis 10 mg p.o. b.i.d. 7. Xanax 0.5 p.o. b.i.d. p.r.n. ALLERGIES: PENICILLIN. FAMILY HISTORY: Diabetes in the family. SOCIAL HISTORY: Previous history of smoking. No history of current smoking or alcohol intake. REVIEW OF SYSTEMS: ENT: Diminished vision and diminished hearing. Cardio system: As mentioned earlier. Respiratory: As mentioned earlier. GI no nausea or vomiting. no dysuria. Nervous system: No numbness, weakness. Allergy/Immunology: No asthma or hayfever. Musculoskeletal: As mentioned earlier. Hematology/Oncology: No history of anemia. Endocrine: As mentioned earlier. CONSTITUTIONAL: As mentioned. Dermatology: Negative. Rheumatology: Negative. Psychiatric: As mentioned earlier. PHYSICAL EXAM: The patient is alert and oriented times two. Pulse 77. Blood pressure 129/66, respirations 18, temp 97.8, pulse ox 98% on 2 L. HEENT is conjunctivae normal. Oral mucosa moist. Neck is no jugular venous distention. No carotid bruit. No lymph node enlargement. Cardiovascular: S1, S2 muffled. No S3, no S4. Respiratory: Breath sounds diminished in the bases. No rhonchi. No crackles. ABDOMEN: Soft, nontender. No mass palpable. Legs no edema. No swelling. NERVOUS SYSTEM: Higher functions as mentioned earlier. Moves all four limbs. No focal motor or sensory deficits. Lymphatics: No lymph nodes palpable in the neck, axillae or groin. Skin: No ulcer, rash, or bleeding. LABS: At this time shows WBC 4, hemoglobin 11.4, glucose 103, UA noted. ASSESSMENT: 1. Dizziness for evaluation possible rule out orthostatic hypotension. 2. History of recent pulmonary embolism on anticoagulation. 3. History of asthma. 4. History of coronary artery disease. 5. History of deep vein thrombosis. 6. History of gastroesophageal reflux disease. 7. History of degenerative joint disease. 8. History of coronary artery disease. 9. History hypothyroidism. 10.History of diverticulosis. 11.Bowel resection. 12.History of cholecystitis. 13.Anxiety/depression. RECOMMENDATIONS AND DISCUSSION: This 89-year-old woman who presented with multiple complex medical issues, we will monitor the patient closely, continue the current medications, symptomatic treatment, management and recommend resume the home medications and will treat the patient symptomatically with meclizine otherwise Apixaban will be continued and I would also recommend a neurology consultation with Dr. Mini Smith. Otherwise currently I would recommend continue the current medications, management and symptomatic treatment and I would also consult Pulmonary because of the family's concern for recurrent thromboembolism, which I think is very less likely. The patient also complaining of back pain, which could be musculoskeletal in origin. However, I would order coagulation parameters as well for tomorrow. I would also recommend a D-dimer as well. The rest of the home medications will be continued and prognosis guarded. Further recommendations to follow. MMODL / IJN: [id number] /
[2017-05-16] MEDS ORDERED: LEVOTHYROXINE 100 MCG TAB PO SCH (06:30)
[2017-05-16 07:19] LABS: D-Dimer 0.41 mg/L FEU (<0.60)
[2017-05-16 07:22] LABS: INR 1.1 (<1.2)
[2017-05-16 07:33] VITALS: RESP 16
[2017-05-16] MEDS ORDERED: APIXABAN 5 MG TAB PO SCH (09:00)
--- NOTE | 2017-05-16 10:50 | P.CNPUL ---
History of Present Illness Consult date: 05/16/17 Requesting physician: Russell Murphy Reason for consult: other Chief complaint: Dizziness, lightheadedness History of present illness: Yesenia is a 89-year-old white female patient of Dr. Lester, who presented to the emergency department on 05/15/2017 at 2034 with complaints of dizziness and lightheadedness. Patient is a very poor historian, she was brought in to the hospital by her daughter who had concerns about this ongoing intermittent problem for quite some time. Previously patient had been on meclizine for it. Patient denied any fever, chills, shortness of breath, cough, chest congestion or sputum production. She had recently been hospitalized for acute right lower extremity femoral DVT and pulmonary embolism and that was an unprovoked events. The presenting symptoms at that time were dizziness and presyncope, therefore it is clear why the daughter was concerned with her mother's dizziness this time. Patient was started on Eliquis during last admission, and she still remains on Eliquis at 10 mg by mouth twice a day. The medical history includes asthma, coronary artery disease, GERD, osteoarthritis, hypothyroidism. Chest x- ray from 05/15/2017 showed a new very small right pleural effusion compared to the old exam on 04/30/2017. EKG showed sinus rhythm with first-degree AV block. Patient is maintaining stable oxygenation, on room air, her pulse ox is 97%. She is not hypoxic. She is not tachycardic. Her respirations are even and nonlabored. She denies any chest pain, there is no hemoptysis. She is afebrile, her vital signs are normal. Lab work showed WBC of 4.0, hemoglobin of 11.4. D-dimer was negative at 0.41, normal electrolytes, BUN is 20, creatinine is 0.80. Plasma lactic acid was 1.0, troponin was negative 1. Urinalysis showed small amount of blood, trace leukocyte esterase, rare mucus, and some WBCs. She denies any urinary or respiratory complaints. She is tolerating oral intake. Review of Systems All systems: negative Constitutional: Denies chills, Denies fever Eyes: denies blurred vision, denies pain Ears, nose, mouth and throat: Denies headache, Denies sore throat Cardiovascular: Denies chest pain, Denies shortness of breath Respiratory: Denies cough Gastrointestinal: Denies abdominal pain, Denies diarrhea, Denies nausea, Denies vomiting Genitourinary: Denies dysuria, Denies hematuria Musculoskeletal: Denies myalgias Integumentary: Denies pruritus, Denies rash Neurological: Denies numbness, Denies weakness Psychiatric: Denies anxiety, Denies depression Endocrine: Denies fatigue, Denies weight change Past Medical History Past Medical History: Asthma, Coronary Artery Disease (CAD), Chest Pain / Angina , GERD/Reflux, Osteoarthritis (OA), Thyroid Disorder Additional Past Medical History / Comment(s): Coronary artery disease, bronchial asthma, hypothyroidism, diverticulosis/diverticulitis, rosacea, Graves ' disease history of, carotid artery disease, chronic constipation, history of right-sided wrist fracture History of Any Multi-Drug Resistant Organisms: None Reported Past Surgical History: Bowel Resection, Cholecystectomy, Hysterectomy, Tonsillectomy Additional Past Surgical History / Comment(s): tooth pulled , thyroidectomy. right hip replacement. Past Anesthesia/Blood Transfusion Reactions: No Reported Reaction Past Psychological History: Anxiety, Depression Smoking Status: Former smoker Past Alcohol Use History: None Reported Past Drug Use History: None Reported - Past Family History Mother Family Medical History: Diabetes Mellitus Father Additional Family Medical History / Comment(s): WAS AN ALCOHOLIC AGE 47 Daughter(s) Family Medical History: Diabetes Mellitus Medications and Allergies Home Medications Medication Instructions Recorded Confirmed Type Cetirizine HCl [Zyrtec] 10 mg PO DAILY PRN 04/19/15 05/15/17 History Levothyroxine Sodium [Synthroid] 100 mcg PO DAILY 04/19/15 05/15/17 History ALPRAZolam [Xanax] 0.25 mg PO BID PRN 07/08/16 05/15/17 History Fluticasone Propionate 1 spray EA NOSTRIL DAILY PRN 02/25/17 05/15/17 History Meclizine HCl 12.5 mg PO TID PRN 02/25/17 05/15/17 History Apixaban [Eliquis] 10 mg PO BID tab 05/02/17 05/15/17 Rx Omeprazole 40 mg PO DAILY PRN 05/15/17 05/15/17 History Allergies Allergy/AdvReac Type Severity Reaction Status Date / Time Penicillins Allergy Unknown Verified 05/15/17 23:52 Childhood Physical Exam Vitals: Vital Signs Temp Pulse Pulse Pulse Resp BP BP 05/16/17 07:31 97.9 F 71 16 102/50 05/16/17 04:00 98.6 F 73 18 111/62 05/16/17 00:00 68 18 05/15/17 23:47 97.8 F 68 18 142/69 05/15/17 23:21 77 18 129/67 05/15/17 22:21 71 18 160/70 05/15/17 21:13 74 18 147/69 05/15/17 20:44 98.1 F 76 20 154/66 Pulse Ox 05/16/17 07:31 97 05/16/17 04:00 97 05/16/17 00:00 05/15/17 23:47 100 05/15/17 23:21 98 05/15/17 22:21 94 L 05/15/17 21:13 100 05/15/17 20:44 99 Intake and Output 05/15/17 05/16/17 05/16/17 22:59 06:59 14:59 Intake Total 250 Balance 250 Intake: Oral 250 Other: # Voids 1 Weight 43.091 kg 94.4 kg GENERAL EXAM: Alert, active, comfortable in no apparent distress. HEAD: Normocephalic/atraumatic. EYES: Normal reaction of pupils, equal size. Conjunctiva pink, sclera white. NOSE: Clear with pink turbinates. THROAT: No erythema or exudates. NECK: No masses, no JVD, no thyroid enlargement, no adenopathy. CHEST: No chest wall deformity. Symmetrical expansion. LUNGS: Equal air entry with no crackles, wheeze, rhonchi or dullness. CVS: Regular rate and rhythm, normal S1 and S2, no gallops, no murmurs, no rubs ABDOMEN: Soft, nontender. No hepatosplenomegaly, normal bowel sounds, no guarding or rigidity. EXTREMITIES: No clubbing, no edema, no cyanosis, 2+ pulses and upper and lower extremities. MUSCULOSKELETAL: Muscle strength and tone normal. SPINE: No scoliosis or deformity SKIN: No rashes CENTRAL NERVOUS SYSTEM: Alert and oriented -3. No focal deficits, tone is normal in all 4 extremities. PSYCHIATRIC: Alert and oriented -3. Appropriate affect. Intact judgment and insight. Results - Laboratory Findings CBC and BMP: 05/15/17 21:15 05/15/17 21:15 PT/INR, D-dimer PT 11.0 sec (9.0-12.0) 05/16/17 06:49 INR 1.1 (<1.2) 05/16/17 06:49 D-Dimer 0.41 mg/L FEU (<0.60) 05/16/17 06:49 Abnormal lab findings: Abnormal Labs 05/15/1718 05/15/17 21:15 21:15 22:16 RBC 3.74 L BUN 20 H Glucose 103 H Alkaline Phosphatase 36 L Urine Blood Small H Ur Leukocyte Esterase Trace H Urine RBC 8 H Urine WBC 6 H Amorphous Sediment Rare H Urine Mucus Rare H - Diagnostic Findings Chest x-ray: report reviewed Additional studies: Twelve-lead EKG reviewed Assessment and Plan Plan: Assessment: #1. Dizziness, lightheadedness on presentation, the etiology of which is not exactly clear. D-dimer was negative at 0.41, patient is anticoagulated on Eliquis, no hypoxia, no tachycardia, no chest pain, no hemoptysis, no dyspnea on presentation, making a new episode of pulmonary embolism unlikely #2. Recent unprovoked right lower extremity femoral DVT with secondary PE, presenting symptoms at that time were dizziness and presyncope. Patient had carotid Dopplers that showed no evidence of any hemodynamically significant lesion or stenosis. CTA chest showed slightly enlarged right ventricle, but there was no flattening of the intraventricular ventricular septum to suggest strain pattern. Echocardiogram showed a normal ejection fraction of 55-60%. The PA pressure was mildly elevated at 27. #3. Chronic bronchial asthma, currently under good control #4. Hypothyroidism #5. ALLERGIC rhinitis #6. Coronary artery disease #7. Degenerative arthritis Plan: Continue Eliquis, continue home meds. Continue meclizine. There are no acute findings on lab work, chest x-ray or physical exam. Patient is unlikely to have a new episode of pulmonary embolism. From pulmonary standpoint she can be discharged home today on her home medications. Follow-up with Dr. Vasquez in the office in 7-10 days I performed a history & physical examination of the patient and discussed their management with my nurse practitioner, Zainab Nielsen. I reviewed the nurse practitioner's note and agree with the documented findings and plan of care. Lung sounds are clear. The findings and the impression was discussed with the patient. I attest to the documentation by the nurse practitioner. Time with Patient: Greater than 30
[2017-05-16 11:51] VITALS: BP 109/48; PULSE 72; TEMP 98.2
[2017-05-16 15:29] VITALS: BMI 16.7
--- NOTE | 2017-05-16 19:25 | DS ---
DISCHARGE SUMMARY FINAL DIAGNOSES: 1. Dizziness and weakness, possibly nonspecific. 2. History of recent pulmonary embolism on anticoagulation. 3. History of asthma. 4. History of back pain, degenerative joint disease. 5. History of coronary artery disease. 6. History of deep venous thrombosis. 7. History of gastroesophageal reflux disease. 8. History of degenerative joint disease. 9. History of coronary artery disease. 10.History of hypothyroidism. 11.History of diverticulosis. 12.History of bowel resection. 13.History cholecystitis. 14.History of anxiety, depression. DISCHARGE DISPOSITION: The patient is being discharged in stable condition with guarded prognosis. HISTORY OF PRESENT ILLNESS: This 89-year-old woman with a past medical history of multiple medical problems, is being followed by Dr. Hutchinson in the outpatient setting, admitted with dizziness and multiple other symptomatology. The patient had a recent pulmonary embolism. The family is concerned. The patient was monitored closely overnight and the patient improved significantly. On exam, vitals are stable. CARDIOVASCULAR: S1, S2 muffled. NERVOUS SYSTEM: Nonfocal. DISCHARGE ADVICE AND MEDICATIONS: Diet is cardiac diet. FOLLOWUP: Follow up with Dr. Hutchinson in 2-3 days. Follow up with Dr. Vasquez as advised. MEDICATIONS: Will be: 1. Xanax 0.25 b.i.d. p.r.n. for anxiety. 2. Eliquis 10 mg p.o. b.i.d. 3. Zyrtec 10 mg daily. 4. Fluticasone propionate 1 spray each nostril. 5. Synthroid 100 mcg p.o. daily. 6. Meclizine 12.5 mg p.o. t.i.d. p.r.n. .. 7. Omeprazole 40 mg p.o. daily p.r.n. Once again, the patient discharged in stable condition with a guarded prognosis. MMODL / IJN: [id number] /
== END 2017-05-16 15:37 | disposition home or self-care (01) ==
LOC: EC 20:34 → 3OBS 23:08
PROVIDERS: ADMIT Hospitalist; ATTEND Hospitalist
DX: R53.1 Weakness (principal); R42 Dizziness and giddiness; R55 Syncope and collapse; Z86.711 Personal history of pulmonary embolism; J45.909 Unspecified asthma, uncomplicated; M19.90 Unspecified osteoarthritis, unspecified site; I25.10 Atherosclerotic heart disease of native coronary artery without angina pectoris; F41.9 Anxiety disorder, unspecified; F32.9 Major depressive disorder, single episode, unspecified; Z90.49 Acquired absence of other specified parts of digestive tract; E05.00 Thyrotoxicosis with diffuse goiter without thyrotoxic crisis or storm; E03.9 Hypothyroidism, unspecified; K21.9 Gastro-esophageal reflux disease without esophagitis; Z86.718 Personal history of other venous thrombosis and embolism; Z87.891 Personal history of nicotine dependence; Z79.01 Long term (current) use of anticoagulants; Z79.899 Other long term (current) drug therapy; Z88.0 Allergy status to penicillin; Z83.3 Family history of diabetes mellitus
CPT/HCPCS: 99285; 36415; 93005; 85379; 80053; 83605; 84484; 85025; 85610; 81001; 71045; G0378 ×2